=== PATIENT | female | born 1950 | race Caucasian/White ===

== ENCOUNTER 2018-11-08 08:41 | Outpatient (CLI) | payer OTHER | END 2018-11-08 08:42 | disposition home or self-care (01) | LOC: BICMAMMO 08:41 | DX: Z12.31 Encounter for screening mammogram for malignant neoplasm of breast (principal) | CPT/HCPCS: 77063; 77067 ==

== ENCOUNTER 2023-09-16 07:42 | Observation (INO) | payer MEDICARE, OTHER ==
[2023-09-16 08:19] LABS: #Eosinphils 0.1 thou/uL (0.0-0.7); #Monocytes 0.6 thou/uL (0.11-0.59); #Neutrophils 3.3 thou/uL (1.40-6.50); %Basophils 0.3 % (0.0-1.0); %Eosinophils 2.3 % (0.0-10.0); %Lymphocytes 33.2 % (21.0-51.0); %Monocytes 10.1 % (0.0-10.0); %Neutrophils 53.9 % (42.0-75.0); Hemoglobin 11.6 g/dL (12.0-16.0); Mean Corpuscular HGB CONC 33.1 g/dL (32.0-36.0); Mean Corpuscular Hemoglobin 30.9 pg (27.0-31.0); Mean Corpuscular Volume 93.3 fl (78.0-98.0); Platelet Count 160 10x3/uL (130-400); Red Blood Cell (RBC) Count 3.75 mill/uL (4.20-5.40); White Blood Cell (WBC) Count 6.1 10x3/uL (4.8-10.8)
[2023-09-16 08:44] LABS: ALT (SGPT) 15 U/L (8-55); AST (SGOT) 23 U/L (5-34); Albumin 4.1 g/dL (3.4-4.8); Alkaline Phosphatase 47 U/L (40-110); Anion Gap 9 mmol/L (10-20); BUN (Urea Nitrogen) 16 mg/dL (9.8-20.1); Bilirubin, Total 0.6 mg/dL (0.2-1.2); Calc. Creatinine Clearance 0 mL/min (70-130); Calcium 9.1 mg/dL (7.8-10.44); Carbon Dioxide 29 mmol/L (23-31); Chloride 103 mmol/L (98-107); Estimated GFR 74; Globulin 2.1 g/dL (2.4-3.5); Glucose 98 mg/dL (83-110); Protein, Total 6.2 g/dL (5.8-8.1); Sodium 137 mmol/L (136-145)
[2023-09-16 08:46] LABS: Troponin I Less than 0.010 ng/mL (< 0.028)
[2023-09-16] MEDS ORDERED: Aspirin Chewable 81 MG TAB ONE (09:50)
[2023-09-16] MEDS ORDERED: Ondansetron ODT 4 MG TAB PO PRN (10:53)
[2023-09-16] MEDS ORDERED: Ondansetron PF 4 MG/2 ML Vial IVP PRN (10:53)
[2023-09-16 10:56] LABS: Bilirubin Negative (Negative); Blood, Urine 2+ (Negative); CAUTI Indications for Culture Dysuria,urgency,freq; Clarity Turbid (Clear); Glucose, Urine (Dipstick) Normal (Negative); Ketone, Urine Negative (Negative); Leukocyte 500 Leu/uL (Negative); Nitrite Negative (Negative); Protein, Urine (Dipstick) Negative (Neg-Trace); RBC/HPF 0-3 HPF (0-3); Specific Gravity, Urine 1.007 (1.002-1.036); Squamous Epithelial None Seen HPF (0-3); Urobilinogen Normal mg/dL (Less than 2); WBC/HPF Greater than 50 HPF (0-3)
[2023-09-16] MEDS ORDERED: Nitroglycerin 0.4 MG TAB (25 Tab Bottle) SL PRN (10:57)
[2023-09-16 11:00] LABS: Bacteria/HPF 1+ HPF (None Seen)
[2023-09-16] MEDS ORDERED: Electrolyte Replacement Protocol 1 EACH FS SCH (11:00)
[2023-09-16 11:01] LABS: Urine Culture Reflex Yes Yes
[2023-09-16 11:20] LABS: Troponin I 0.019 ng/mL (< 0.028)
[2023-09-16] MEDS ORDERED: Electrolyte Replacement Protocol FS PRN (11:45)
[2023-09-16 12:13] VITALS: BMI 22.3
[2023-09-16] MEDS ORDERED: Acetaminophen 325 MG TAB PO PRN (12:14)
[2023-09-16] MEDS: cefTRIAXone\\ROCEPHIN 1 GM in Sodium Chloride 0.9% 100 ML IVPB SCH (12:50)
[2023-09-16] MEDS: Sodium Chloride 0.9% 1,000 ML IV SCH (12:50)
[2023-09-16 14:02] LABS: Troponin I Less than 0.010 ng/mL (< 0.028)
[2023-09-16] MEDS ORDERED: Atorvastatin Calcium 20 MG TAB PO SCH (21:00)
[2023-09-17] MEDS ORDERED: Acetaminophen 325 MG TAB PO PRN (03:02)
[2023-09-17] MEDS ORDERED: Acetaminophen 500 MG TAB PO SCH (03:15)
[2023-09-17 05:32] LABS: #Eosinphils 0.1 thou/uL (0.0-0.7); #Monocytes 0.6 thou/uL (0.11-0.59); #Neutrophils 2.2 thou/uL (1.40-6.50); %Basophils 0.6 % (0.0-1.0); %Lymphocytes 38.1 % (21.0-51.0); %Monocytes 12.2 % (0.0-10.0); %Neutrophils 46.1 % (42.0-75.0); Hematocrit 35.4 % (36.0-47.0); Hemoglobin 11.7 g/dL (12.0-16.0); Mean Corpuscular HGB CONC 33.1 g/dL (32.0-36.0); Mean Corpuscular Volume 93.7 fl (78.0-98.0); Mean Platelet Volume 11.5 fL (7.4-10.4); Platelet Count 146 10x3/uL (130-400); RBC Distribution Width 12.7 % (11.5-14.5); Red Blood Cell (RBC) Count 3.78 mill/uL (4.20-5.40); White Blood Cell (WBC) Count 4.7 10x3/uL (4.8-10.8)
[2023-09-17 05:55] LABS: Anion Gap 13 mmol/L (10-20); BUN (Urea Nitrogen) 14 mg/dL (9.8-20.1); Calc. Creatinine Clearance 66 mL/min (70-130); Calcium 8.6 mg/dL (7.8-10.44); Carbon Dioxide 22 mmol/L (23-31); Chloride 110 mmol/L (98-107); Estimated GFR 87; Glucose 97 mg/dL (83-110); Sodium 141 mmol/L (136-145)
[2023-09-17] MEDS ORDERED: Levothyroxine Sodium 50 MCG TAB PO SCH (06:00)
[2023-09-17] MEDS: Sodium Chloride 0.9% 1,000 ML IV SCH ×2 (06:33→08:40)
[2023-09-17 08:15] VITALS: BP 164/70; TEMP 97.7
[2023-09-17] MEDS ORDERED: Multivitamin W/ Minerals 1 TAB PO SCH (09:00)
[2023-09-17] MEDS ORDERED: Polyethylene Glycol 3350 17 GM Packet PO SCH (09:00)
[2023-09-17] MEDS ORDERED: Aspirin Chewable 81 MG TAB PO SCH (09:00)
[2023-09-17] MEDS ORDERED: ADENOSINE 60 MG/20 ML SDV ONE (09:55)
[2023-09-17] MEDS: cefTRIAXone\\ROCEPHIN 1 GM in Sodium Chloride 0.9% 100 ML IVPB SCH (12:34)
[2023-09-17] MEDS ORDERED: Brimonidine Tartrate 0.2% Ophth Soln 5 ml Bottle EA EYE SCH (21:00)
[2023-09-18] MEDS ORDERED: Losartan 25 MG TAB PO SCH (09:00)
== END 2023-09-17 14:50 | disposition home or self-care (01) ==
LOC: ERS 07:42 → INTOOBSV 10:30 → IMCU/EMU 10:30 → ERHOLD 11:11 → 2SW 12:09
PROVIDERS: ADMIT Family Medicine; ATTEND Hospitalist
DX: R42 Dizziness and giddiness (principal); R07.9 Chest pain, unspecified; I08.3 Combined rheumatic disorders of mitral, aortic and tricuspid valves; N39.0 Urinary tract infection, site not specified; E78.5 Hyperlipidemia, unspecified; I10 Essential (primary) hypertension; E03.9 Hypothyroidism, unspecified; Z90.710 Acquired absence of both cervix and uterus; Z79.890 Hormone replacement therapy; Z79.899 Other long term (current) drug therapy
CPT/HCPCS: 71045; 78452; 80048; 81001; 82962; 83880; 84484 ×2; 85025; 87077; 87086; 87186; 93005; 93017; 93306; 93971; 96360; 96365; 96366; 96372; 99285; A9500; G0378 ×2; 36415; 36416; 80053; 84443; 96361; J0153; J0696; J1650; J3490; J7050